=== PATIENT | male | born 2000 | race Caucasian/White ===

== ENCOUNTER 2024-12-18 18:02 | Emergency (ER) | payer SELFPAY ==
[2024-12-18] VITALS (9 sets, daily range): BP systolic 116–139; BP diastolic 71–87; PULSE 74–116; RESP 12–16; TEMP 37.2; O2SAT 96–99; BMI 19.0
[2024-12-18 18:20] LABS: Glucose Point of Care 442 mg/dL (70-110)
--- NOTE | 2024-12-18 19:12 | ECG_ITS ---
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 Measurements Intervals [place] Rate: 91 P: 64 [place]: 163 QRS: 60 QRSD: 99 T: 21 QT: 327 QTc: 403 Interpretive Statements SINUS RHYTHM LEFT ATRIAL ENLARGEMENT [-0.15mV P-WAVE IN V1/V2] NONSPECIFIC T-WAVE ABNORMALITY No previous ECG available for comparison Electronically Signed On 12-24-2024 11:53:53 CDT by Lyndon Velasquez M.D. [email or web address]
--- NOTE | 2024-12-18 19:33 | ED_ITS ---
HPI - General Adult 2 General: Chief complaint: General Medical Stated complaint: Type 1 blood sugar 400 TWO days Time Seen by Provider: 12/18/24 19:13 History of Present Illness: 24-year-old man with a history of type 1 diabetes that was diagnosed when he was 12 years old who presents the emergency room with hyperglycemia. He says for the last 4 to 5 days his sugar has been high and he is not sure why. He says he has not been feeling bad. He says he has been in DKA before and this does not feel the same. No fevers. No cough. No altered mental status. No abdominal pain. No nausea or vomiting. No dysuria. He reports he has been taking his insulin as instructed and actually has taken over 110 units today. Related Data Allergies Allergy/AdvReac Type Severity Reaction Status Date / Time diphenhydramine (From Allergy Unknown Verified 12/18/24 18:20 Benadryl) insulin lispro (From Humalog Allergy Unknown Verified 12/18/24 18:20 U-100 Insulin) morphine Allergy Unknown Verified 12/18/24 18:20 Review of Systems 2 Narrative: Constitutional symptoms: Negative except as documented in HPI. Skin symptoms: Negative except as documented in HPI. Eye symptoms: Negative except as documented in HPI. ENMT symptoms: Negative except as documented in HPI. Respiratory symptoms: Negative except as documented in HPI. Cardiovascular symptoms: Negative except as documented in HPI. Gastrointestinal symptoms: Negative except as documented in HPI. Genitourinary symptoms: Negative except as documented in HPI. Musculoskeletal symptoms: Negative except as documented in HPI. Neurologic symptoms: Negative except as documented in HPI. Psychiatric symptoms: Negative except as documented in HPI. Endocrine symptoms: Negative except as documented in HPI. Physical Exam 2 Narrative: EXAM NARRATIVE: General: Alert, no acute distress. Skin: Warm, dry. Head: Normocephalic, atraumatic. Neck: Supple, trachea midline. Eye: Extraocular movements are intact. Ears, nose, mouth and throat: Tacky oral mucosa Cardiovascular: Regular, Normal peripheral perfusion. Respiratory: Lungs are clear to auscultation, respirations are non-labored, breath sounds are equal, Symmetrical chest wall expansion. Gastrointestinal: Soft, Nontender, Non distended Musculoskeletal: Normal ROM, no deformity. Neurological: Alert and oriented, No focal neurological deficit observed. Psychiatric: Cooperative, appropriate mood & affect. Course 2 Vital Signs: Vital signs: Vital Signs Temperature 99.0 F 12/18/24 18:15 Pulse Rate 91 12/19/24 00:00 Respiratory Rate 17 12/19/24 00:00 Blood Pressure 114/70 12/19/24 00:00 Pulse Oximetry 98 12/19/24 00:00 Oxygen Delivery Me thod Room Air 12/18/24 18:15 MDM - General Adult Medical Decision Making Medical decision making: Differential diagnosis for the patient with hyperglycemia would include but not be limited to and would be based on the above HPI review of systems and physical exam: DKA. Dehydration. Renal failure. Concern for electrolyte abnormalities. Concern for underlying infection that might result in hyperglycemia. Medical non-compliance. Orders placed to evaluate differential diagnosis of the patient with hyperglycemia are based on the above differential, HPI and physical exam. Lab Review: Laboratory results were reviewed and interpreted by myself the emergency room physician. No leukocytosis. No anemia. BUN is slightly elevated at 21 with a normal creatinine of 0.8. Sugar is high at 417. Serum ketones are negative. Blood gas is negative for acidosis. Glucoses remained fairly persistently high even after fluids and multiple doses of insulin. Family got down below 300 and the patient request to go home. He feels like he can manage it from here. I reviewed the patient's medical record. Reexamination: Patient remained stable. No increased work of breathing. No altered mental status. No focal motor deficits. Assessment and plan: Hyperglycemia Type 1 diabetes Dehydration ?2 L normal saline bolus. 10 units IV insulin then 15 units IV insulin. - Discharged home - Discussed plan with patient. Answered any questions. - Evaluation and treatment of this problem were appropriate in the emergency setting. Lab Data 12/18/24 19:29 12/18/24 19:29 Laboratory Results WBC 8.87 10^3/uL (3.29-11.43) 12/18/24 19: RBC 4.82 10^6/uL (3.85-5.65) 12/18/24 19: Hgb 14.30 g/dL (11.27-16.99) 12/18/24 19: Hct 41.1 % (37-53) 12/18/24 19: MCV 85.3 fl (82-101) 12/18/24 19: MCH 29.7 pg (27-33) 12/18/24 19: MCHC 34.8 g/dL (30-55) 12/18/24 19: RDW 12.6 % (12.1-15.1) 12/18/24 19: Plt Count 256 10^3/cmm (157-399) 12/18/24 19: MPV 10.7 fL (7.4-10.4) H 12/18/24 19: Neut % (Auto) 57.0 % 12/18/24 19: Lymph % (Auto) 32.0 % 12/18/24 19: [place] % (Auto) 8.7 % 12/18/24 19: Eos % (Auto) 1.4 % 12/18/24 19: Baso % (Auto) 0.6 % 12/18/24 19: Neut # (Auto) 5.06 10^3/uL (1.8-7.7) 12/18/24 19: Lymph # (Auto) 2.8 10^3/uL (0.8-4.8) 12/18/24 19: [place] # (Auto) 0.8 10^3/uL (0.2-0.9) 12/18/24 19: Eos # (Auto) 0.1 10^3/uL (0.0-0.8) 12/18/24 19: Baso # (Auto) 0.1 10^3/uL (0.0-0.1) 12/18/24: Nucleated RBC % (auto) 0 % 12/18/24: Nucleated RBCs # 0.0 /100WBC 12/18/24 19:29 Specimen Type Arterial 12/18/24 19:55 Sample Site Radial, right 12/18/24 19:55 ABG pH 7.44 (7.35-7.45) 12/18/24 19:55 ABG pCO2 35.6 mmHg (35-45) 12/18/24 19:55 ABG pO2 104.0 mmHg (80.0-100.0) H 12/18/24 19:55 ABG HCO3 24.0 mmol/L (22-26) 12/18/24 19:55 ABG O2 Saturation 99.0 12/18/24 19:55 ABG Base Excess 0.1 mmol/L (-2.0-2.0) 12/18/24 19:55 Roge Test Pos 12/18/24 19:55 A-a O2 Gradient 0.0 mmHg (5-10) L 12/18/24 19:55 Hematocrit 42.2 % (42-52) 12/18/24 19:55 Hgb O2 Saturation 96.8 % (95-100) 12/18/24 19:55 Carboxyhemoglobin 1.0 %THgb (0.4-20.1) 12/18/24 19:55 Methemoglobin 1.2 % (0.4-1.5) 12/18/24 19:55 Total Hemoglobin 13.8 g/dL (14-18) L 12/18/24 19:55 Sodium 135.0 mmol/L (131-143) 12/18/24 19:55 Potassium 3.5 mmol/L (3.5-5.0) 12/18/24 19:55 Glucose 443.0 mg/dL (70-115) H 12/18/24 19:55 Ionized Calcium 1.1 mmol/L (1.1-1.4) 12/18/24 19:55 O2 Delivery Device Room air 12/18/24 19:55 Dry House Worker ID [email or web address] 12/18/24 19:55 Sodium 135 mmol/L (136-145) L 12/18/24 19:29 Potassium 3.9 mmol/L (3.5-5.1) 12/18/24 19:29 Chloride 97 mmol/L (98-107) L 12/18/24 19:29 Carbon Dioxide 22 mmol/L (22-29) 12/18/24 19:29 Anion Gap 19.9 (5-19) H 12/18/24 19:29 BUN 21 mg/dL (6-20) H 12/18/24 19:29 Creatinine 0.8 mg/dL (0.7-1.2) 12/18/24 19:29 GFR Calculation 120.9 mL/min (90-130) 12/18/24 19:29 Glucose 417 mg/dL (65-115) H 12/18/24 19:29 POC Glucose 271 mg/dL (70-110) H 12/19/24 00:11 Calculated Osmolality 301 mOsm/kg (285-295) H 12/18/24 19: Lactic Acid 1.2 mmol/L (0.5-2.2) 12/18/24 19: Calcium 8.9 mg/dL (8.5-10.5) 12/18/24 19: Total Bilirubin 0.2 mg/dL (0.15-1.2) 12/18/24 19: AST 10 U/L (0-40) 12/18/24 19: ALT 13 U/L (0-41) 12/18/24 19: Alkaline Phosphatase 95 U/L (40-130) 12/18/24 19: Total Protein 6.4 g/dL (6.6-8.7) L 12/18/24 19: Albumin 4.0 g/dL (3.5-5.2) 12/18/24 19: Globulin 2.4 g/dL (1.3-4.6) 12/18/24 19: Urine Color Yellow (Yellow) 12/18/24 19: Urine Appearance Clear (CLEAR) 12/18/24 19: Urine pH 5.5 (5-7) 12/18/24 19: Ur Specific [place] 1.043 (1.005-1.030) H 12/18/24 19: Urine Protein Negative (Negative) 12/18/24 19: Urine Glucose (UA) 3+ (Normal) H 12/18/24 19: Urine Ketones 1+ (Negative) H 12/18/24 19: Urine Blood Negative (Negative) 12/18/24: Urine Nitrate Negative (Negative) 12/18/24 19: Urine Bilirubin Negative (Negative) 12/18/24 19: Urine Urobilinogen 0.2 mg/dL (Negative) 12/18/24 19: Ur Leukocyte Esterase Negative (Negative) 12/18/24 19: Urine RBC 0-2 /hpf (0-2) 12/18/24 19: Urine WBC 0-5 /hpf (0-5) 12/18/24 19: Ur Squamous Epith Cells 0-5 /hpf (0-5) 12/18/24 19: Amorphous Sediment Not Reportable 12/18/24 19: Urine Bacteria None seen /hpf (NONE) 12/18/24 19:30 Hyaline Casts 0-4 /lpf H 12/18/24 19:30 Serum Ketones Negative (Negative) 12/18/24 19:29 Influenza A (PCR) Negative (Negative) 12/18/24 20:11 Influenza Type B (PCR) Negative (Negative) 12/18/24 20:11 RSV (PCR) Negative (Negative) 12/18/24 20:11 SARS-CoV-2 (PCR) Negative (Negative) 12/18/24 20:11 All radiology interpretation(s) finalized by discharge Discharge Plan Discharge Patient Disposition: Home Clinical Impression: Hyperglycemia, Type I diabetes mellitus, Dehydration Condition: Stable Discharge Orders: Discharge ED (Routine); Ordered 12/19/24 Ordered By: Fatemeh Osullivan Discharge Diet: Usual diet Discharge Activity: Increase activity as tolerated Patient Instructions: Diabetic Hyperglycemia (ED), Opioid Safety, Pain Management Activity Restrictions/Additional Instructions: If you continue to have difficulty with your sugars being elevated or develop any signs or symptoms of diabetic ketoacidosis please return probably to the emergency room. Also please seek primary care as soon as possible. Thank you for choosing [facility] for your healthcare needs today. You have been screened and evaluated and felt safe for discharge. Health conditions do change or evolve sometimes and as such it is important that you follow up with your Primary Doctor to be re checked, 3-5 days is a general good time frame for follow up. You are always welcome to return to the ED for re assessment if your symptoms are worsening or you have new concerns Print Language: Citizen Of [place] Coding Level of Care Code ED Business Office Manager for Jelly Teresa
[2024-12-18] MEDS: sodium chloride 0.9% 1,000 ML 999 ML IV ×2 (19:38→19:46)
[2024-12-18 19:43] LABS: Basophils # 0.1 10^3/uL (0.0-0.1); Basophils % 0.6 %; Eosinophils # 0.1 10^3/uL (0.0-0.8); Eosinophils % 1.4 %; Hematocrit 41.1 % (37-53); Lymphocytes # 2.8 10^3/uL (0.8-4.8); Mean Corpuscular HGB Conc 34.8 g/dL (30-55); Mean Corpuscular Hemoglobin 29.7 pg (27-33); Mean Corpuscular Volume 85.3 fl (82-101); Mean Platelet Volume 10.7 fL (7.4-10.4); Monocytes # 0.8 10^3/uL (0.2-0.9); Monocytes % 8.7 %; Neutrophils # 5.06 10^3/uL (1.8-7.7); Nucleated Red Blood Cells % 0 %; Platelet Count 256 10^3/cmm (157-399); Red Blood Count 4.82 10^6/uL (3.85-5.65); Red Cell Distribution Width 12.6 % (12.1-15.1); White Blood Count 8.87 10^3/uL (3.29-11.43)
[2024-12-18 19:48] LABS: Bilirubin Urine Negative (Negative); Blood Urine Negative (Negative); Glucose Urine UA 3+ (Normal); Ketones Urine 1+ (Negative); Leukocyte Esterase Urine Negative (Negative); Nitrate Urine Negative (Negative); Protein Urine Negative (Negative); Urine Appearance Clear (CLEAR); Urine Color Yellow (Yellow); Urobilinogen Urine 0.2 mg/dL (Negative); pH Urine 5.5 (5-7)
[2024-12-18 19:49] LABS: Ketone (Acetest) Serum Negative (Negative)
[2024-12-18 19:53] LABS: Bacteria Urine None Seen /hpf; Hyaline Casts Urine 0-4 /lpf; RBC Urine 0-2 /hpf (0-2); Squamous Epithelial Cell Urine 0-5 /hpf (0-5); WBC Urine 0-5 /hpf (0-5)
[2024-12-18 19:54] LABS: Specific Gravity, Urine 1.043 (1.005-1.030)
[2024-12-18 19:56] LABS: Alanine Aminotransferase 13 U/L (0-41); Alkaline Phosphatase 95 U/L (40-130); Anion Gap 19.9 (5-19); Aspartate Amino Transferase 10 U/L (0-40); Blood Urea Nitrogen 21 mg/dL (6-20); Calcium 8.9 mg/dL (8.5-10.5); Carbon Dioxide 22 mmol/L (22-29); Chloride 97 mmol/L (98-107); Creatinine Clr Calc Pharmacy 145.1461; Globulin 2.4 g/dL (1.3-4.6); Glomerular Filtration Rate 120.9 mL/min (90-130); Glucose 417 mg/dL (65-115); Osmolality Calculated 301 mOsm/kg (285-295); Potassium 3.9 mmol/L (3.5-5.1); Sodium 135 mmol/L (136-145); Total Bilirubin 0.2 mg/dL (0.15-1.2); Total Protein 6.4 g/dL (6.6-8.7)
[2024-12-18 19:57] LABS: Lactic Sepsis W/Reflex 1.2 mmol/L (0.5-2.2)
[2024-12-18 20:07] LABS: ABG PCO2 35.6 mmHg (35-45); ABG PH Result 7.44 (7.35-7.45); Arterial Blood Gas Hematocrit 42.2 % (42-52); Base Excess ABG 0.1 mmol/L (-2.0-2.0); Blood Gas Allen Test Pos; Blood Gas Sample Site Radial, right; Blood Gas Sample Type Arterial; HGB O2 Sat 96.8 % (95-100); Ionized Calcium Level - ABG 1.1 mmol/L (1.1-1.4); Methemoglobin 1.2 % (0.4-1.5); Oxygen Device ROOM AIR; Potassium Level - ABG 3.5 mmol/L (3.5-5.0); Total Hemoglobin 13.8 g/dL (14-18)
[2024-12-18 20:13] LABS: Glucose Point of Care 427 mg/dL (70-110)
[2024-12-18] MEDS: insulin regular-human 100 units/1 mL 10 UNIT IVP (20:41)
[2024-12-18 21:15] LABS: Influenza A NEGATIVE (Negative); Influenza B NEGATIVE (Negative); Respiratory Syncytial Virus Ce NEGATIVE (Negative); SARS-CoV-2 PCR NEGATIVE (Negative)
[2024-12-18 21:44] LABS: Glucose Point of Care 280 mg/dL (70-110)
[2024-12-18 23:18] LABS: Glucose Point of Care 355 mg/dL (70-110)
[2024-12-18] MEDS: insulin regular-human 100 units/1 mL 15 UNIT IVP (23:34)
[2024-12-19] VITALS: BP 114/70; PULSE 91; RESP 17; O2SAT 98
[2024-12-19 00:14] LABS: Glucose Point of Care 271 mg/dL (70-110)
== END 2024-12-19 00:15 | disposition home or self-care (01) ==
PROVIDERS: Emergency Provider Emergency Medicine
DX: E10.65 Type 1 diabetes mellitus with hyperglycemia (principal); E86.0 Dehydration; Z11.52 Encounter for screening for COVID-19
CPT/HCPCS: 36415; 36416; 36600; 80051; 80053; 81001; 82009; 82330; 82805; 82962; 83605; 85025; 87040; 87637; 93005; 96361; 96374; 96376; 99284; J1815; J7030